=== PATIENT | male | born 1985 | race Caucasian/White ===

== ENCOUNTER 2020-12-23 15:48 | Emergency (ER) | payer OTHER ==
[2020-12-23 16:01] VITALS: BP 159/98; PULSE 82; TEMP 98.3; BMI 45.1
[2020-12-23] MEDS ORDERED: DIPHTH,PERTUSS(ACELL),TET 0.5 ML DISP.SYRIN IM ONE ×2 (17:22→17:27)
== END 2020-12-23 18:24 ==
LOC: JERFT 15:48
PROC: 0HQFXZZ Repair Right Hand Skin, External Approach (ICD-10-PCS; principal; 2020-12-23)
PROC: 3E0234Z Introduction of Serum, Toxoid and Vaccine into Muscle, Percutaneous Approach (ICD-10-PCS; 2020-12-23)
DX: S61.411A Laceration without foreign body of right hand, initial encounter (principal); W26.8XXA Contact with other sharp object(s), not elsewhere classified, initial encounter
CPT/HCPCS: 90715; 99284-25

== ENCOUNTER 2021-03-17 11:06 | Emergency (ER) | payer OTHER ==
[2021-03-17 11:43] VITALS: BP 147/81; PULSE 85; TEMP 98.5; BMI 45.1
[2021-03-17] MEDS ORDERED: KETOROLAC TROMETHAMINE 60 MG/2 ML VIAL IM ONE (13:19)
[2021-03-17] MEDS ORDERED: METHOCARBAMOL 500 MG TABLET PO ONE (13:19)
[2021-03-17] MEDS ORDERED: LIDOCAINE 5% TOPICAL PATCH TP ONE (13:19)
[2021-03-17] MEDS ORDERED: ALBUTEROL SO4 2.5/IPRATROPIUM 0.5 INH SOL 3 ML VIAL.NEB. NEB ONE ×2 (13:19→14:27)
[2021-03-17] MEDS ORDERED: METHOCARBAMOL 500 MG TABLET ONE (13:22)
[2021-03-17] MEDS ORDERED: LIDOCAINE 5% TOPICAL PATCH ONE (13:22)
[2021-03-17] MEDS ORDERED: KETOROLAC TROMETHAMINE 30 MG/1 ML VIAL ONE (13:23)
[2021-03-17] MEDS ORDERED: LIDOCAINE PATCH REMOVAL MC SCH (22:00)
== END 2021-03-17 15:30 | disposition home or self-care (01) ==
LOC: JERFT 11:06 → JER 11:06 → JERFT 15:30
PROC: 3E0F7GC Introduction of Other Therapeutic Substance into Respiratory Tract, Via Natural or Artificial Opening (ICD-10-PCS; principal; 2021-03-17)
PROC: 3E0233Z Introduction of Anti-inflammatory into Muscle, Percutaneous Approach (ICD-10-PCS; 2021-03-17)
DX: M25.512 Pain in left shoulder (principal)
CPT/HCPCS: 73030-TC-LT-FY; 99284-25

== ENCOUNTER 2024-02-15 18:36 | Emergency (ER) | payer BC, OTHER ==
[2024-02-15 18:46] VITALS: BP 135/86; PULSE 100; RESP 20; TEMP 98.2; BMI 43.5
== END 2024-02-15 21:16 | disposition home or self-care (01) ==
LOC: JER 18:36
DX: H65.92 Unspecified nonsuppurative otitis media, left ear (principal); H92.02 Otalgia, left ear; R05.9 Cough, unspecified; R53.83 Other fatigue
CPT/HCPCS: 99283-25

== ENCOUNTER 2024-02-19 16:43 | Emergency (ER) | payer BC ==
[2024-02-19 16:49] VITALS: BP 149/88; PULSE 97; RESP 19; TEMP 98.4; BMI 43.5
== END 2024-02-19 18:36 | disposition home or self-care (01) ==
LOC: JER 16:43
DX: R05.1 Acute cough (principal); R06.2 Wheezing; Z20.822 Contact with and (suspected) exposure to COVID-19
CPT/HCPCS: 0241U-QW; 71046-TC-FY; 93005; 93010; 99285-25